=== PATIENT | male | born 1995 | race Caucasian/White ===

== ENCOUNTER 2017-04-29 10:13 | Emergency (ER) | payer MEDICAID ==
[~2017-04-29] VITALS: Ht 170.2 cm; Wt 79.0 kg
[2017-04-29 10:38] VITALS: BP 113/63
[2017-04-29] MEDS ORDERED: IBUP-2028 PO (10:42)
== END 2017-04-29 14:03 | disposition home or self-care (01) ==
LOC: ER 12:08
DX: J02.0 Streptococcal pharyngitis (principal); J45.909 Unspecified asthma, uncomplicated; F12.10 Cannabis abuse, uncomplicated
CPT/HCPCS: 99281; 99283

== ENCOUNTER 2018-08-26 12:16 | Emergency (ER) | payer MEDICAID ==
[~2018-08-26] VITALS: Ht 167.6 cm; Wt 75.0 kg
[~2018-08-26 12:16] MED LIST: IBUP-2028 PO
[2018-08-26] MEDS ORDERED: IBUPROFEN 600MG TABLET PO STA (13:57)
[2018-08-26] MEDS ORDERED: IBUPROFEN 600MG TABLET PO NR (14:15)
[2018-08-26 14:32] VITALS: BP 116/72
[2018-08-26 15:20] LABS: CLARITY URINE CLEAR (CLEAR); COLOR URINE YELLOW (YELLOW); KETONES URINE NEGATIVE (NEGATIVE); LEUKOCYTE ESTERASE URINE NEGATIVE (NEGATIVE); NITRITE URINE NEGATIVE (NEGATIVE); OCCULT BLOOD URINE NEGATIVE (NEGATIVE); PH URINE 6.5 (4.5-8.0); PROTEIN URINE NEGATIVE (NEGATIVE); SPECIFIC GRAVITY URINE 1.023 (1.005-1.030)
== END 2018-08-26 14:38 | disposition home or self-care (01) ==
LOC: ER 12:16
DX: N48.21 Abscess of corpus cavernosum and penis (principal); J45.909 Unspecified asthma, uncomplicated; F12.10 Cannabis abuse, uncomplicated; F17.200 Nicotine dependence, unspecified, uncomplicated; Z79.899 Other long term (current) drug therapy
CPT/HCPCS: 99283